=== PATIENT | female | born 1975 | race Caucasian/White ===

== ENCOUNTER 2016-08-02 17:07 | Emergency (ER) | payer BC ==
[~2016-08-02] VITALS: Ht 160 cm; Wt 86.2 kg
[~2016-08-02 17:07] MED LIST: CLARITIN-D 12 H1 TAB PO; DIFLUCAN150 MG PO; ZITHROMAX Z PA250 MG PO
[2016-08-02] MEDS ORDERED: PANTOPRAZOLE SO40 MG PO (17:13)
[2016-08-02] MEDS ORDERED: ATENOLOL50 M1 PO (17:13)
[2016-08-02] MEDS ORDERED: ACETAMINOPHEN-H1 TA2 PO (17:14)
[2016-08-02] MEDS ORDERED: CITALOPRAM HYDR40 MG PO (17:14)
[2016-08-02] MEDS ORDERED: SUMATRIPTAN SUC50 M1 PO (17:14)
[2016-08-02] MEDS ORDERED: LORAZEPAM1 MG PO (17:14)
[2016-08-02] MEDS ORDERED: LEVONOR-ETH ES1 EAC1 PO (17:15)
[2016-08-02 17:40] LABS: HEMATOCRIT 36.7 % (37.0-47.0); HEMOGLOBIN 11.9 g/dl (12.0-16.0); MEAN CELL VOLUME 89.3 fl (81.0-99.0); MEAN CORPUSCULAR HGB CONC 32.4 g/dl (33.0-37.0); MEAN PLATELET VOLUME 10.2 fl (9.6-12.3); PLATELET COUNT AUTOMATED 375 10*3/uL (130-400); RED BLOOD COUNT 4.11 10*6/uL (4.10-5.10); WHITE BLOOD COUNT 10.3 10*3/uL (4.8-10.8)
[2016-08-02 17:55] LABS: ALBUMIN 3.4 gm/dl (3.1-4.5); ALKALINE PHOSPHATASE 61 U/L (45-117); B-hCG (QUALITATIVE) NEGATIVE (NEGATIVE); BILIRUBIN, TOTAL 0.1 mg/dl (0.2-1.0); BUN 12 mg/dl (7-24); CARBON DIOXIDE 26 mmol/L (21-32); CHLORIDE 104 mmol/L (98-107); CPK 74 U/L (26-192); EST GLOM FILT AFRICAN AMERICAN > 60 ml/min; GLUCOSE 74 mg/dL (65-99); POTASSIUM 3.9 mmol/L (3.5-5.1); SGOT/AST 28 IU/L (3-35); SGPT/ALT 34 U/L (12-78); SODIUM 139 mmol/L (136-145); TOTAL PROTEIN 7.9 gm/dL (6.4-8.2)
[2016-08-02 17:58] LABS: INTERNATIONAL NORM RATIO 0.9 (2.0-3.5); PROTHROMBIN TIME 9.9 SECONDS (9.0-12.4)
[2016-08-02 18:00] VITALS: BP 139/76
[2016-08-02 18:18] LABS: ATYPICAL LYMPHS 10 % (0-0); BASOPHIL # 0.1 10*3/uL (0-0.1); BASOPHILS 1 % (0-1); EOSINOPHIL # 0.2 10*3/uL (0-0.4); EOSINOPHILS 2 % (1-4); LYMPHOCYTE # 6.2 10*3/uL (1.3-4.4); MONOCYTE # 1.2 10*3/uL (0.1-1.0); NEUTROPHIL # 2.6 10*3/uL (2.3-7.9); NEUTROPHILS 25 % (47-73); TOTAL CELLS COUNTED 100 #CELLS
[2016-08-02 18:19] LABS: PLATELET SUFFICIENCY NORMAL (NORMAL)
[2016-09-20] MEDS ORDERED: MULTIPLE VITAMI1 T25 PO (09:17)
[2016-09-20] MEDS ORDERED: BIOTIN10 MG PO (09:18)
[2016-09-20] MEDS ORDERED: CALCIUM 500 +1 EAC3 PO (09:18)
[2016-09-20] MEDS ORDERED: ZYRTEC10 M3 PO (09:19)
[2016-09-20] MEDS ORDERED: IBU800 MG PO (09:19)
[2016-09-26] MEDS ORDERED: ZOFRAN4 MG PO (09:10)
[2016-09-26] MEDS ORDERED: PERCOCET 325 MG1 TA2 PO (09:11)
[2016-10-10] MEDS ORDERED: ZOFRAN4 MG PO (17:53)
== END 2016-08-02 18:45 | disposition home or self-care (01) ==
LOC: ED 17:07
PROVIDERS: Student in an Organized Health Care Education/Training Program
DX: R07.9 Chest pain, unspecified (principal); K21.9 Gastro-esophageal reflux disease without esophagitis; Z90.49 Acquired absence of other specified parts of digestive tract

== ENCOUNTER 2018-12-24 19:01 | Emergency (ER) | payer BC ==
[~2018-12-24] VITALS: Ht 157.4 cm; Wt 90.7 kg
[~2018-12-24 19:01] MED LIST changes: +ACETAMINOPHEN-H1 TA2 PO; +ATENOLOL50 M1 PO; +BIOTIN10 MG PO; +CALCIUM 500 +1 EAC3 PO; +CITALOPRAM HYDR40 MG PO; +IBU800 MG PO; +LEVONOR-ETH ES1 EAC1 PO; +LORAZEPAM1 MG PO; +MULTIPLE VITAMI1 T25 PO; +PANTOPRAZOLE SO40 MG PO; +PERCOCET 325 MG1 TA2 PO; +SUMATRIPTAN SUC50 M1 PO; +ZOFRAN4 MG PO; +ZYRTEC10 M3 PO
[2018-12-24 19:03] VITALS: BP 148/79
[2018-12-24] MEDS ORDERED: Motrin,Rufen800 MG PO (19:42)
[2018-12-24] MEDS ORDERED: CLINDAMYCIN HC300 MG PO (19:42)
== END 2018-12-24 19:59 | disposition home or self-care (01) ==
LOC: ED 19:01
DX: K04.7 Periapical abscess without sinus (principal); K02.9 Dental caries, unspecified; Z79.899 Other long term (current) drug therapy

== ENCOUNTER → 2019-03-03 | Outpatient (CLI) | payer BC ==
[~2019-03-03] MED LIST changes: +CLINDAMYCIN HC300 MG PO; +KEFLEX500 M1 PO; +Motrin,Rufen800 MG PO; +PYRIDIUM200 M1 PO
[2019-03-03 12:51] LABS: BILIRUBIN NEGATIVE (NEGATIVE); BLOOD 2+ (NEGATIVE); CLARITY CLEAR (CLEAR); COLOR YELLOW (YELLOW); GLUCOSE NEGATIVE (NEGATIVE); KETONE NEGATIVE (NEGATIVE); LEUKO ESTERASE NEGATIVE (NEGATIVE); NITRITE NEGATIVE (NEGATIVE); UROBILINOGEN 0.2 E.U./dl (0.2-1.0)
[2019-03-03 13:18] LABS: BACTERIA 2+
== END | disposition home or self-care (01) ==
LOC: LAB 12:32
PROVIDERS: Family Medicine
DX: N30.00 Acute cystitis without hematuria (principal)

== ENCOUNTER 2019-03-05 03:22 | Emergency (ER) | payer BC ==
[~2019-03-05] VITALS: Wt 100.7 kg
[~2019-03-05 03:22] MED LIST changes: -KEFLEX500 M1 PO; -PYRIDIUM200 M1 PO
[2019-03-05 03:23] VITALS: BP 126/85
[2019-03-05 03:44] LABS: BILIRUBIN NEGATIVE (NEGATIVE); BLOOD 1+ (NEGATIVE); CLARITY CLEAR (CLEAR); COLOR YELLOW (YELLOW); GLUCOSE NEGATIVE (NEGATIVE); KETONE NEGATIVE (NEGATIVE); LEUKO ESTERASE NEGATIVE (NEGATIVE); NITRITE NEGATIVE (NEGATIVE); UROBILINOGEN 0.2 E.U./dl (0.2-1.0)
[2019-03-05 03:50] LABS: BACTERIA 2+
[2019-03-05] MEDS ORDERED: PYRIDIUM200 M1 PO (04:19)
[2019-03-05] MEDS ORDERED: KEFLEX500 M1 PO (04:19)
[2019-03-05] MEDS ORDERED: DIFLUCAN150 MG PO (04:30)
== END 2019-03-05 04:36 | disposition home or self-care (01) ==
LOC: ED 03:22
PROVIDERS: Emergency Medicine Emergency Medical Services
DX: N39.0 Urinary tract infection, site not specified (principal); Z79.899 Other long term (current) drug therapy; Z90.49 Acquired absence of other specified parts of digestive tract

== ENCOUNTER 2022-01-27 02:29 | Emergency (ER) | payer SELFPAY ==
[~2022-01-27] VITALS: Ht 170.1 cm; Wt 95.3 kg
[~2022-01-27 02:29] MED LIST changes: +KEFLEX500 M1 PO; +PYRIDIUM200 M1 PO
[2022-01-27 02:41] VITALS: BP 150/76
== END 2022-01-27 03:01 | disposition home or self-care (01) ==
LOC: ED 02:29
DX: T16.1XXA Foreign body in right ear, initial encounter (principal); Z79.899 Other long term (current) drug therapy; Z90.49 Acquired absence of other specified parts of digestive tract; Z98.890 Other specified postprocedural states; X58.XXXA Exposure to other specified factors, initial encounter; Y93.89 Activity, other specified; Y92.89 Other specified places as the place of occurrence of the external cause; Y99.8 Other external cause status

== ENCOUNTER → 2024-02-20 | Outpatient (CLI) | payer SELFPAY ==
[2024-02-20 12:49] LABS: ALKALINE PHOSPHATASE 67 U/L (46-116); BUN 7 mg/dl (9-23); CHLORIDE 105 mmol/L (98-107); CHOLESTEROL 216 mg/dL (<200); FREE T4 0.95 ng/dl (0.89-1.76); LDL CHOLESTEROL 129 mg/dL (9-159); POTASSIUM 3.8 mmol/L (3.4-5.1); SGPT/ALT 24 U/L (5-49); TOTAL PROTEIN 7.6 gm/dL (6.0-8.0); TRIGLYCERIDES 145 mg/dl (<150); VITAMIN D, 25-HYDROXY 37.4 ng/mL (30-100)
[2024-02-20 13:31] LABS: BASO % 0.4 % (0.0-1.0); EOS # 0.1 10*3/uL (0.0-0.4); EOS % 1.5 % (1.0-4.0); HEMATOCRIT 38.5 % (37.0-47.0); LYMPH # 2.7 10*3/uL (1.3-4.4); LYMPH % 36.3 % (27.0-41.0); MEAN CELL VOLUME 91.2 fl (81.0-99.0); MEAN CORPUSCULAR HGB 29.1 pg (27.0-31.0); MEAN CORPUSCULAR HGB CONC 31.9 g/dl (33.0-37.0); MEAN PLATELET VOLUME 10.9 fl (9.6-12.3); MONO # 0.6 10*3/uL (0.1-1.0); MONO % 8.4 % (3.0-9.0); NEUT # 3.9 10*3/uL (2.3-7.9); PLATELET COUNT AUTOMATED 378 10*3/uL (130-400); RED BLOOD COUNT 4.22 10*6/uL (4.10-5.10); RED CELL DISTRI WIDTH 14.3 % (0-14.5); WHITE BLOOD COUNT 7.4 10*3/uL (4.8-10.8)
== END | disposition home or self-care (01) ==
LOC: LAB 11:06
PROVIDERS: ATTEND Internal Medicine
DX: I10 Essential (primary) hypertension (principal); J44.9 Chronic obstructive pulmonary disease, unspecified; E11.9 Type 2 diabetes mellitus without complications